=== PATIENT | female | born 1970 | race Two or more races ===

== ENCOUNTER 2020-03-12 00:38 | Inpatient (IN) | payer OTHER, SELFPAY ==
--- NOTE | 2020-03-12 | ECG_ITS ---
Test Reason : qtc prolongation Blood Pressure : / mmHG Vent. Rate : 084 BPM Atrial Rate : 084 BPM P-R Int : 124 ms QRS Dur : 080 ms QT Int : 360 ms P-R-T Axes : 064 025 030 degrees QTc Int : 425 ms Normal sinus rhythm Normal ECG No previous ECGs available Referred By: Deanna Awad Electronically Signed By:QUINN SALAZAR
--- NOTE | 2020-03-12 | CT_ITS ---
EXAMINATION: CT HEAD WITHOUT CONTRAST CLINICAL INFORMATION: Anterograde amnesia. COMPARISON: None. TECHNIQUE: Contiguous axial imaging was performed from the skull base to vertex without intravenous contrast. This CT examination was performed using dose optimization techniques as appropriate, variously including the following: * Automated exposure control * Adjustment of mA and/or kV according to patient size (this includes techniques or standardized protocols for targeted exams where dose is matched to indication/reason for exam; i.e. extremities or head) Use of iterative reconstruction technique DLP: 634 mGy-cm. FINDINGS: There is no evidence of acute intracranial hemorrhage or territorial infarction. No abnormal mass effect or midline shift is seen. Maddox to white matter differentiation is well preserved. No extra-axial fluid collections are identified. No hydrocephalus. No significant volume loss. There is no abnormal attenuation within the brain parenchyma. No acute osseous or soft tissue abnormality. Occipital decompression secondary to low position of the cerebellar tonsils. The mastoid air cells and visualized portions of the paranasal sinuses are well aerated. CT/CT head/brain wo con IMPRESSION: No acute intracranial pathology.
[2020-03-12 01:30] VITALS: BP 126/83; PULSE 95; RESP 16; TEMP 37.2; O2SAT 99
[2020-03-12 02:21] VITALS: BMI 21.8
[2020-03-12] MEDS: hydrOXYzine HCL 25 MG TABLET 50 MG PO ×2 (03:28→20:15)
[2020-03-12] MEDS: LORazepam 1 MG TABLET PO ×2 (03:28→16:03)
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
[2020-03-12 06:00] VITALS: BP 123/83; PULSE 83; RESP 16; TEMP 36.8; O2SAT 99
[2020-03-12 06:48] LABS: Glucose, Whole Blood 114 mg/dL (60-115)
[2020-03-12] MEDS: Folic Acid 1 MG TABLET PO (08:45)
[2020-03-12] MEDS: Escitalopram Oxalate 20 MG TABLET PO (08:45)
[2020-03-12] MEDS: Cholecalciferol (Vitamin D3) 25 MCG TABLET PO (08:45)
[2020-03-12] MEDS: Gabapentin 400 MG CAPSULE 800 MG PO ×3 (08:45→20:14)
[2020-03-12] MEDS: Acetaminophen 325 MG TABLET 650 MG PO (10:16)
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
[2020-03-12] MEDS: Magnesium Hydrox/Alum Hydrox 30 ML ORAL.SUSP PO (12:00)
[2020-03-12 17:07] LABS: Glucose, Whole Blood 113 mg/dL (60-115)
[2020-03-12 18:00] VITALS: BP 137/77; PULSE 97; TEMP 37.2
[2020-03-12] MEDS: Lithium Carbonate 300 MG CAPSULE PO (20:15)
[2020-03-12] MEDS: traZODone HCL 50 MG TABLET PO (20:15)
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
[2020-03-13] MEDS: LORazepam 1 MG TABLET PO ×2 (00:54→22:26)
[2020-03-13] MEDS: traZODone HCL 50 MG TABLET PO ×2 (00:54→22:26)
[2020-03-13 05:15] VITALS: BP 120/74; PULSE 98; RESP 18; TEMP 36.6; O2SAT 98
[2020-03-13 05:25] LABS: Glucose, Whole Blood 103 mg/dL (60-115)
[2020-03-13] MEDS: Acetaminophen 325 MG TABLET 650 MG PO (05:26)
[2020-03-13] MEDS: hydrOXYzine HCL 25 MG TABLET 50 MG PO (05:27)
[2020-03-13] MEDS: Gabapentin 400 MG CAPSULE 800 MG PO ×3 (09:03→20:35)
[2020-03-13] MEDS: Cholecalciferol (Vitamin D3) 25 MCG TABLET PO (09:03)
[2020-03-13] MEDS: Lithium Carbonate 300 MG CAPSULE PO ×2 (09:03→20:35)
[2020-03-13] MEDS: Escitalopram Oxalate 20 MG TABLET PO (09:03)
[2020-03-13] MEDS: Folic Acid 1 MG TABLET PO (09:03)
[2020-03-13 09:10] LABS: MANUAL DIFF FLAG NO
[2020-03-13 09:12] LABS: Basophils Absolute Auto 0.1 X10*3/uL (0.0-0.2); Basophils Percent Auto 1.3 % (0-2); Eosinophils Absolute Auto 0.5 X10*3/uL (0.0-0.4); Eosinophils Percent Auto 5.9 % (0-4); Hematocrit 36.1 % (37-47); Hemoglobin 11.2 g/dl (12.0-16.0); Imm Gran Abs Auto 0.04 X10*3/uL (0.00-0.03); Imm Gran Pct Auto 0.5 % (0.0-0.4); Lymphocytes Absolute Auto 2.2 X10*3/uL (1.2-4.9); Lymphocytes Percent Auto 24.6 % (20-40); Mean Corpuscular Hemoglobin 24.6 pg (27.0-33.0); Mean Corpuscular Volume 79.2 fL (80-98); Mean Platelet Volume 9.5 fL (9.4-12.3); Monocytes Absolute Auto 0.9 X10*3/uL (0.1-1.2); Monocytes Percent Auto 9.8 % (2-11); Neutrophils Absolute Auto 5.1 X10*3/uL (2.0-8.3); Neutrophils Percent Auto 57.9 % (45-73); Platelet Count 393 X10*3/uL (160-400); Red Blood Count 4.56 X10*6/uL (4.20-5.50); Red Cell Distribution Width 19.1 % (11.0-16.0); White Blood Count 8.7 X10*3/uL (4.8-10.8)
[2020-03-13 09:35] LABS: Alanine Aminotransferase 25 U/L (0-31); Albumin Level 4.1 g/dL (3.5-5.0); Alkaline Phosphatase 68 U/L (39-117); Anion Gap 14 (12-20); Aspartate Amino Transferase 35 U/L (5-31); Bilirubin Total 0.3 mg/dL (0.0-1.0); Blood Urea Nitrogen 22 mg/dL (9-16); Calcium 9.1 mg/dL (8.4-10.2); Carbon Dioxide 28 mmol/L (22-29); Chloride 101 mmol/L (96-108); Cholesterol 197 mg/dL; Creatinine Clr Calc Pharmacy 64.3; Estimated Glomerular Filt Rate > 60; Glucose Fasting 87 mg/dL (60-99); HDL Cholesterol 64 mg/dL; LDL Cholesterol Calculated 108 mg/dl; Potassium 4.8 mmol/l (3.3-5.1); Sodium 138 mmol/L (135-145); Total Protein 6.9 g/dL (6.5-8.0); Triglycerides 128 mg/dL
[2020-03-13 09:53] LABS: Estimated Average Glucose 111 mg/dL; Hemoglobin A1c % 5.5 %
[2020-03-13 09:55] LABS: Free T4 (Free Thyroxine) 0.64 ng/dL (0.71-1.85); Thyroid Stimulating Hormone 3.04 uIU/mL (0.32-4.0)
--- NOTE | 2020-03-13 15:07 | HO.PSYCHPN ---
Subjective Subjective Date of Service: 03/13/20 Reason For Visit: MAJOR DEPRESSIVE ORDER Subjective Notes: Conditional Voluntary Interim History: Pt continues to report difficulties with memory thinking that she has been in unit more than 4 days. However, she did recognized this freelance copywriter right away when she saw me and knew role. She continues to report depressed mood, anhedonia, but denies SI/HI. She reports fair sleep. Medication Compliance: Yes Side effects from medications: No Attending Groups: Yes Review of Systems Constitutional: Reports no additional constitutional complaints Cardiovascular: Reports no additional cardiovascular complaints Gastrointestinal: Reports no additional gastrointestinal complaints Musculoskeletal: Reports no additional musculoskeletal complaints Mental Status Exam Mental Status Exam Narrative: Appearance: thin, malnourish woman, somewhat disheveled, in NAD Behavior: calm, cooperative Psychomotor: no agitation or retardation noted Speech: clear, normal rate/rhythm/volume, spontaneous TP: linear, with gaps in memory TC: no signs of psychosis, hopeless/helpless, worried about her memory Mood: depressed Affect: slightly brigther than reported mood AH/VH: none Delusions: none Insight/judgment: poor x 2. Memory/cog: alert, oriented x 3, will complete MOCA Diagnostics Vital Signs (24Hr): Vital Signs - 24 hr 03/12/20 18:00 03/13/20 05:15 Temperature 98.9 F 98 F Pulse Rate 97 98 Respiratory Rate 18 Blood Pressure 137/77 120/74 Pulse Oximetry 98 Body Mass Index 21.8 Labs Results: 03/13/20 08:34 03/13/20 08:34 Labs: Laboratory Results - last 48 hr 03/12/20 03/12/20 03/13/20 06:30 16:57 05:21 WBC RBC Hgb Hct MCV MCH MCHC RDW Plt Count MPV Immature Gran % (Auto) Neut % (Auto) Lymph % (Auto) [place] % (Auto) Eos % (Auto) Baso % (Auto) Lymph # (Auto) [place] # (Auto) Eos # (Auto) Baso # (Auto) Abs Immat Gran (auto) Absolute Neuts (auto) Absolute Nucleated RBC Nucleated RBC % (auto) Sodium Potassium Chloride Carbon Dioxide Anion Gap BUN Creatinine Estim Creat Clear Calc Estimated GFR POC Glucose 114 113 103 Fasting Glucose Estimat Average Glucose Hemoglobin A1c % Calcium Total Bilirubin AST ALT Alkaline Phosphatase Total Protein Albumin Triglycerides Cholesterol LDL Cholesterol, Calc HDL Cholesterol TSH Free T4 03/13/20 03/13/20 03/13/20 08:34 08:34 08:34 WBC 8.7 RBC 4.56 Hgb 11.2 L Hct 36.1 L MCV 79.2 L MCH 24.6 L MCHC 31.0 RDW 19.1 H Plt Count 393 MPV 9.5 Immature Gran % (Auto) 0.5 H Neut % (Auto) 57.9 Lymph % (Auto) 24.6 [place] % (Auto) 9.8 Eos % (Auto) 5.9 H Baso % (Auto) 1.3 Lymph # (Auto) 2.2 [place] # (Auto) 0.9 Eos # (Auto) 0.5 H Baso # (Auto) 0.1 Abs Immat Gran (auto) 0.04 H Absolute Neuts (auto) 5.1 Absolute Nucleated RBC 0.000 Nucleated RBC % (auto) 0.0 Sodium 138 Potassium 4.8 Chloride 101 Carbon Dioxide 28 Anion Gap 14 BUN 22 H Creatinine 0.98 Estim Creat Clear Calc 64.3 Estimated GFR > 60 POC Glucose Fasting Glucose 87 Estimat Average Glucose 111 Hemoglobin A1c % 5.5 Calcium 9.1 Total Bilirubin 0.3 AST 35 H ALT 25 Alkaline Phosphatase 68 Total Protein 6.9 Albumin 4.1 Triglycerides 128 Cholesterol 197 LDL Cholesterol, Calc 108 HDL Cholesterol 64 TSH 3.04 Free T4 0.64 L Imaging Radiology Impressions: ITS Impressions Head CT 03/12/20 00:00 IMPRESSION: No acute intracranial pathology. Medications Medications Current Medications Generic Name Dose Route Start Last Admin Trade Name Freq PRN Reason Stop Dose Admin Acetaminophen 650 mg 03/12/20 02:49 03/13/20 05:26 Acetaminophen 325 Mg Tablet PO 650 mg Q6H PRN Administration Headache/Pain Mild Scale (1-3) Al Hydroxide/Mg Hydroxide 30 ml 03/12/20 02:49 03/12/20 12:00 Magnesium Hydrox/Alum Hydrox 30 Ml Oral.Susp PO 30 ml Q6H PRN Administration Heartburn/Nausea Escitalopram Oxalate 20 mg 03/12/20 09:00 03/13/20 09:03 Escitalopram Oxalate 20 Mg Tablet PO 20 mg DAILY [facility] Administration Folic Acid 1 mg 03/12/20 09:00 03/13/20 09:03 Folic Acid 1 Mg Tablet PO 1 mg DAILY [facility] Administration Gabapentin 800 mg 03/12/20 09:00 03/13/20 14:11 Gabapentin 400 Mg Capsule PO 800 mg TID [facility] Administration Hydroxyzine HCl 50 mg 03/12/20 02:49 03/13/20 05:27 Hydroxyzine Hcl 25 Mg Tablet PO 50 mg Q6H PRN Administration Anxiety [place] Carbonate 300 mg 03/12/20 21:00 03/13/20 09:03 [place] Carbonate 300 Mg Capsule PO 300 mg BID SP[facility]ER Administration Lorazepam 1 mg 03/12/20 02:59 03/13/20 00:54 Lorazepam 1 Mg Tablet PO 1 mg Q6H PRN Administration Anxiety Magnesium Hydroxide 30 ml 03/12/20 02:49 Milk Of Magnesia 30 Ml Oral.Susp PO DAILY PRN Constipation Nicotine Polacrilex 2 mg 03/12/20 05:51 03/12/20 16:04 Nicotine Polacrilex 2 Mg Lozenge BUCCAL 2 mg Q2H PRN Administration Nicotine Cravings Trazodone HCl 50 mg 03/12/20 02:49 03/13/20 00:54 Trazodone Hcl 50 Mg Tablet PO 50 mg BEDTIME PRN Administration Insomnia Vitamin D 25 mcg 03/12/20 09:00 03/13/20 09:03 Cholecalciferol (Vitamin D3) 25 Mcg Tablet PO 25 mcg DAILY [facility] Administration Allergies Allergies Allergy/AdvReac Type Severity Reaction Status Date / Time isabella Allergy Anaphylaxis Verified 03/12/20 02:18 paprika Allergy Anaphylaxis Verified 03/12/20 02:18 codeine AdvReac Seizure Verified 03/12/20 02:18 lamotrigine [From Lamictal] AdvReac Seizure Verified 03/12/20 02:18 Assessment & Plan Assessment & Plan (1) MDD (major depressive disorder), recurrent episode, moderate: Status: Acute Code(s): F33.1 - Major depressive disorder, recurrent, moderate Assessment and Plan: 1. continue lexapro 2. increase lithium to 300mg po BID 3. continue gabapetin- this is for seizures. 4. Continue remeron for sleep (2) Alcohol dependence: Status: Acute Code(s): F10.20 - Alcohol dependence, uncomplicated Greater than 50% of the session was spent on counseling and/or coordination of care
[2020-03-13 16:00] VITALS: BP 134/80; PULSE 93; TEMP 36.8
[2020-03-13 17:05] LABS: Glucose, Whole Blood 86 mg/dL (60-115)
[2020-03-13 20:31] VITALS: BP 125/83; PULSE 93
[2020-03-13 20:35] VITALS: BP 125/83; PULSE 93
[2020-03-13] MEDS: cloNIDine HCL 0.1 MG TABLET PO (20:35)
[2020-03-14] MEDS: hydrOXYzine HCL 25 MG TABLET 50 MG PO ×2 (01:53→18:34)
[2020-03-14] MEDS: traZODone HCL 50 MG TABLET PO ×2 (01:53→21:56)
[2020-03-14 04:50] VITALS: BP 117/65; PULSE 93; RESP 18; TEMP 36.9; O2SAT 98
[2020-03-14 04:55] VITALS: BP 117/65; PULSE 93
[2020-03-14] MEDS: cloNIDine HCL 0.1 MG TABLET PO (04:55)
[2020-03-14] MEDS: Acetaminophen 325 MG TABLET 650 MG PO (04:55)
[2020-03-14 05:05] LABS: Glucose, Whole Blood 101 mg/dL (60-115)
[2020-03-14] MEDS: Folic Acid 1 MG TABLET PO (08:53)
[2020-03-14] MEDS: Gabapentin 400 MG CAPSULE 800 MG PO ×3 (08:53→21:56)
[2020-03-14] MEDS: Cholecalciferol (Vitamin D3) 25 MCG TABLET PO (08:53)
[2020-03-14] MEDS: Lithium Carbonate 300 MG CAPSULE PO ×2 (08:54→21:56)
[2020-03-14] MEDS: Escitalopram Oxalate 20 MG TABLET PO (08:54)
[2020-03-14] MEDS: LORazepam 1 MG TABLET PO ×2 (14:04→21:56)
--- NOTE | 2020-03-14 14:05 | HO.PSYCHPN ---
Subjective Subjective Date of Service: 03/14/20 Reason For Visit: MAJOR DEPRESSIVE ORDER Interim History: Pt reports improvement in mood in that she feels less depressed, less anxious. She states she worries about missing dose of vivitrol that is due today. Pt reports improved sleep, but woke up few times. She denies SI/HI. No behavioral concerns. She is visible in the unit, social with select peers. Review of Systems Constitutional: Reports no additional constitutional complaints Cardiovascular: Reports no additional cardiovascular complaints Gastrointestinal: Reports no additional gastrointestinal complaints Musculoskeletal: Reports no additional musculoskeletal complaints Mental Status Exam Mental Status Exam Narrative: Appearance: thin, malnourish woman, somewhat disheveled, in NAD Behavior: calm, cooperative Psychomotor: no agitation or retardation noted Speech: clear, normal rate/rhythm/volume, spontaneous TP: linear, with gaps in memory TC: no signs of psychosis, hopeless/helpless, worried about her memory Mood: depressed Affect: slightly brigther than reported mood AH/VH: none Delusions: none Insight/judgment: poor x 2. Memory/cog: alert, oriented x 3, will complete MOCA Diagnostics Vital Signs (24Hr): Vital Signs - 24 hr 03/13/20 16:00 03/13/20 20:31 03/13/20 20:35 Temperature 98.3 F Pulse Rate 93 93 93 Respiratory Rate Blood Pressure 134/80 125/83 125/83 Pulse Oximetry 03/14/20 04:50 03/14/20 04:55 Temperature 98.4 F Pulse Rate 93 93 Respiratory Rate 18 Blood Pressure 117/65 117/65 Pulse Oximetry 98 Body Mass Index 21.8 Labs Results: 03/13/20 08:34 03/13/20 08:34 Labs: Laboratory Results - last 48 hr 03/12/20 03/13/20 03/13/20 16:57 05:21 08:34 WBC 8.7 RBC 4.56 Hgb 11.2 L Hct 36.1 L MCV 79.2 L MCH 24.6 L MCHC 31.0 RDW 19.1 H Plt Count 393 MPV 9.5 Immature Gran % (Auto) 0.5 H Neut % (Auto) 57.9 Lymph % (Auto) 24.6 [place] % (Auto) 9.8 Eos % (Auto) 5.9 H Baso % (Auto) 1.3 Lymph # (Auto) 2.2 [place] # (Auto) 0.9 Eos # (Auto) 0.5 H Baso # (Auto) 0.1 Abs Immat Gran (auto) 0.04 H Absolute Neuts (auto) 5.1 Absolute Nucleated RBC 0.000 Nucleated RBC % (auto) 0.0 Sodium Potassium Chloride Carbon Dioxide Anion Gap BUN Creatinine Estim Creat Clear Calc Estimated GFR POC Glucose 113 103 Fasting Glucose Estimat Average Glucose Hemoglobin A1c % Calcium Total Bilirubin AST ALT Alkaline Phosphatase Total Protein Albumin Triglycerides Cholesterol LDL Cholesterol, Calc HDL Cholesterol TSH Free T4 03/13/20 03/13/20 03/13/20 08:34 08:34 16:53 WBC RBC Hgb Hct MCV MCH MCHC RDW Plt Count MPV Immature Gran % (Auto) Neut % (Auto) Lymph % (Auto) [place] % (Auto) Eos % (Auto) Baso % (Auto) Lymph # (Auto) [place] # (Auto) Eos # (Auto) Baso # (Auto) Abs Immat Gran (auto) Absolute Neuts (auto) Absolute Nucleated RBC Nucleated RBC % (auto) Sodium 138 Potassium 4.8 Chloride 101 Carbon Dioxide 28 Anion Gap 14 BUN 22 H Creatinine 0.98 Estim Creat Clear Calc 64.3 Estimated GFR > 60 POC Glucose 86 Fasting Glucose 87 Estimat Average Glucose 111 Hemoglobin A1c % 5.5 Calcium 9.1 Total Bilirubin 0.3 AST 35 H ALT 25 Alkaline Phosphatase 68 Total Protein 6.9 Albumin 4.1 Triglycerides 128 Cholesterol 197 LDL Cholesterol, Calc 108 HDL Cholesterol 64 TSH 3.04 Free T4 0.64 L 03/14/20 05:01 WBC RBC Hgb Hct MCV MCH MCHC RDW Plt Count MPV Immature Gran % (Auto) Neut % (Auto) Lymph % (Auto) [place] % (Auto) Eos % (Auto) Baso % (Auto) Lymph # (Auto) [place] # (Auto) Eos # (Auto) Baso # (Auto) Abs Immat Gran (auto) Absolute Neuts (auto) Absolute Nucleated RBC Nucleated RBC % (auto) Sodium Potassium Chloride Carbon Dioxide Anion Gap BUN Creatinine Estim Creat Clear Calc Estimated GFR POC Glucose 101 Fasting Glucose Estimat Average Glucose Hemoglobin A1c % Calcium Total Bilirubin AST ALT Alkaline Phosphatase Total Protein Albumin Triglycerides Cholesterol LDL Cholesterol, Calc HDL Cholesterol TSH Free T4 Imaging Radiology Impressions: ITS Impressions Head CT 03/12/20 00:00 IMPRESSION: No acute intracranial pathology. Medications Medications Current Medications Generic Name Dose Route Start Last Admin Trade Name Freq PRN Reason Stop Dose Admin Acetaminophen 650 mg 03/12/20 02:49 03/14/20 04:55 Acetaminophen 325 Mg Tablet PO 650 mg Q6H PRN Administration Headache/Pain Mild Scale (1-3) Al Hydroxide/Mg Hydroxide 30 ml 03/12/20 02:49 03/12/20 12:00 Magnesium Hydrox/Alum Hydrox 30 Ml Oral.Susp PO 30 ml Q6H PRN Administration Heartburn/Nausea Clonidine HCl 0.1 mg 03/13/20 20:23 03/14/20 04:55 Clonidine Hcl 0.1 Mg Tablet PO 0.1 mg TID PRN Administration anxiety Protocol Escitalopram Oxalate 20 mg 03/12/20 09:00 03/14/20 08:54 Escitalopram Oxalate 20 Mg Tablet PO 20 mg DAILY [facility] Administration Folic Acid 1 mg 03/12/20 09:00 03/14/20 08:53 Folic Acid 1 Mg Tablet PO 1 mg DAILY [facility] Administration Gabapentin 800 mg 03/12/20 09:00 03/14/20 08:53 Gabapentin 400 Mg Capsule PO 800 mg TID SPENSER Administration Hydroxyzine HCl 50 mg 03/12/20 02:49 03/14/20 01:53 Hydroxyzine Hcl 25 Mg Tablet PO 50 mg Q6H PRN Administration Anxiety [place] Carbonate 300 mg 03/12/20 21:00 03/14/20 08:54 [place] Carbonate 300 Mg Capsule PO 300 mg BID SPENSER Administration Lorazepam 1 mg 03/12/20 02:59 03/13/20 22:26 Lorazepam 1 Mg Tablet PO 1 mg Q6H PRN Administration Anxiety Magnesium Hydroxide 30 ml 03/12/20 02:49 Milk Of Magnesia 30 Ml Oral.Susp PO DAILY PRN Constipation Nicotine Polacrilex 2 mg 03/12/20 05:51 03/12/20 16:04 Nicotine Polacrilex 2 Mg Lozenge BUCCAL 2 mg Q2H PRN Administration Nicotine Cravings Trazodone HCl 50 mg 03/12/20 02:49 03/14/20 01:53 Trazodone Hcl 50 Mg Tablet PO 50 mg BEDTIME PRN Administration Insomnia Vitamin D 25 mcg 03/12/20 09:00 03/14/20 08:53 Cholecalciferol (Vitamin D3) 25 Mcg Tablet PO 25 mcg DAILY SPENSER Administration Allergies Allergies Allergy/AdvReac Type Severity Reaction Status Date / Time isabella Allergy Anaphylaxis Verified 03/12/20 02:18 paprika Allergy Anaphylaxis Verified 03/12/20 02:18 codeine AdvReac Seizure Verified 03/12/20 02:18 lamotrigine [From Lamictal] AdvReac Seizure Verified 03/12/20 02:18 Assessment & Plan Assessment & Plan (1) MDD (major depressive disorder), recurrent episode, moderate: Status: Acute Code(s): F33.1 - Major depressive disorder, recurrent, moderate Assessment and Plan: 1. continue lexapro 2. increase lithium to 300mg po BID 3. continue gabapetin- this is for seizures. 4. Continue remeron for sleep (2) Alcohol dependence: Status: Acute Code(s): F10.20 - Alcohol dependence, uncomplicated Greater than 50% of the session was spent on counseling and/or coordination of care
[2020-03-14 18:25] VITALS: BP 108/66; PULSE 63; TEMP 36.9
[2020-03-15 02:07] VITALS: BP 109/65; PULSE 73
[2020-03-15] MEDS: cloNIDine HCL 0.1 MG TABLET PO ×2 (02:07→09:20)
[2020-03-15] MEDS: hydrOXYzine HCL 25 MG TABLET 50 MG PO ×3 (02:08→21:24)
[2020-03-15] MEDS: Acetaminophen 325 MG TABLET 650 MG PO ×2 (02:08→14:13)
[2020-03-15] MEDS: traZODone HCL 50 MG TABLET PO ×3 (02:16→23:27)
[2020-03-15 05:21] LABS: Glucose, Whole Blood 93 mg/dL (60-115)
[2020-03-15 05:22] LABS: Folate 13.4 ng/mL (> or = 4.0); Vitamin B12 297 pg/mL (200-900)
[2020-03-15] MEDS: LORazepam 1 MG TABLET PO (05:33)
[2020-03-15 05:45] VITALS: BP 100/59; PULSE 75; RESP 16; TEMP 36.7; O2SAT 99
--- NOTE | 2020-03-15 05:56 | PC.NURSE ---
Patient was up by 0200 requesting PRNs and reports that she has SI due the fact that she could not get her Vivitrol shot. Patient reports that it has been more than 28 days since she last received tx It has been a rough weekends. I have been telling them that I need the shot . Patient reports to staff that she has thoughts and plan to harm to herself but refused to tell RNs what it is. Patient cannot contract for safety. Patient remained on 5 min checks with locked bathroom and staff has been closely monitor patient to make sure patient remain safe on the unit.
[2020-03-15 08:22] LABS: Lithium 0.45 mmol/L (0.60-1.20)
[2020-03-15 08:30] LABS: Iron 30 mcg/dL (30-160); Percent Iron Saturation 6 % (15-50); Total Iron Binding Capacity 474 mcg/dL (228-428); Unsaturated Iron Binding 444 ug/dL
[2020-03-15] MEDS: Gabapentin 400 MG CAPSULE 800 MG PO ×3 (08:43→21:25)
[2020-03-15] MEDS: Cholecalciferol (Vitamin D3) 25 MCG TABLET PO (08:43)
[2020-03-15] MEDS: Folic Acid 1 MG TABLET PO (08:44)
[2020-03-15] MEDS: Lithium Carbonate 300 MG CAPSULE PO ×2 (08:44→21:25)
[2020-03-15] MEDS: Escitalopram Oxalate 20 MG TABLET PO (08:45)
[2020-03-15 09:20] VITALS: BP 102/64; PULSE 87
--- NOTE | 2020-03-15 14:26 | PC.NURSE ---
Pt participated in [facility] screen version 8.1 on this date, scored 20/30, indicating cognition is below normal limits. TRIPE FINISHER and staff aware of results.
--- NOTE | 2020-03-15 14:36 | HO.PSYCHPN ---
Subjective Subjective Date of Service: 03/15/20 Reason For Visit: MAJOR DEPRESSIVE ORDER Interim History: Pt very upset about not being able to get vivitrol injection today. Pt was explained that we have to order it and will come to unit in 3-4 days. Per pharmacy she had last injection 02/16. Pt then reported suicidal ideation if she does not get injection today. She reports nausea with oral pill. She does report some cravings to use alcohol. However, pt prior to meeting was eating lunch, seen smiling and socializing with peers without significant distress. Review of Systems Constitutional: Reports no additional constitutional complaints Cardiovascular: Reports no additional cardiovascular complaints Gastrointestinal: Reports no additional gastrointestinal complaints Musculoskeletal: Reports no additional musculoskeletal complaints Mental Status Exam Mental Status Exam Narrative: Appearance: thin, malnourish woman, somewhat disheveled, in NAD Behavior: calm, cooperative Psychomotor: no agitation or retardation noted Speech: clear, normal rate/rhythm/volume, spontaneous TP: linear, with gaps in memory TC: no signs of psychosis, hopeless/helpless, worried about her memory Mood: depressed Affect: slightly brigther than reported mood AH/VH: none Delusions: none Insight/judgment: poor x 2. Memory/cog: alert, oriented x 3, will complete MOCA Diagnostics Vital Signs (24Hr): Vital Signs - 24 hr 03/14/20 18:25 03/15/20 02:07 03/15/20 05:45 Temperature 98.4 F 98.1 F Pulse Rate 63 73 75 Respiratory Rate 16 Blood Pressure 108/66 109/65 100/59 L Pulse Oximetry 99 03/15/20 09:20 Temperature Pulse Rate 87 Respiratory Rate Blood Pressure 102/64 Pulse Oximetry Body Mass Index 21.8 Labs Results: 03/13/20 08:34 03/13/20 08:34 Labs: Laboratory Results - last 48 hr 03/13/20 03/13/20 03/14/20 08:34 16:53 05:01 POC Glucose 86 101 Iron TIBC % Saturation Unsat Iron Binding Vitamin B12 297 Folate 13.4 [place] 03/15/20 03/15/20 03/15/20 05:17 07:45 07:45 POC Glucose 93 Iron 30 TIBC 474 H % Saturation 6 L Unsat Iron Binding 444 Vitamin B12 Folate [place] 0.45 L Imaging Radiology Impressions: ITS Impressions Head CT 03/12/20 00:00 IMPRESSION: No acute intracranial pathology. Medications Medications Current Medications Generic Name Dose Route Start Last Admin Trade Name Freq PRN Reason Stop Dose Admin Acetaminophen 650 mg 03/12/20 02:49 03/15/20 14:13 Acetaminophen 325 Mg Tablet PO 650 mg Q6H PRN Administration Headache/Pain Mild Scale (1-3) Al Hydroxide/Mg Hydroxide 30 ml 03/12/20 02:49 03/12/20 12:00 Magnesium Hydrox/Alum Hydrox 30 Ml Oral.Susp PO 30 ml Q6H PRN Administration Heartburn/Nausea Clonidine HCl 0.1 mg 03/13/20 20:23 03/15/20 09:20 Clonidine Hcl 0.1 Mg Tablet PO 0.1 mg TID PRN Administration anxiety Protocol Escitalopram Oxalate 20 mg 03/12/20 09:00 03/15/20 08:45 Escitalopram Oxalate 20 Mg Tablet PO 20 mg DAILY SPENSER Administration Folic Acid 1 mg 03/12/20 09:00 03/15/20 08:44 Folic Acid 1 Mg Tablet PO 1 mg DAILY SPENSER Administration Gabapentin 800 mg 03/12/20 09:00 03/15/20 14:13 Gabapentin 400 Mg Capsule PO 800 mg TID SPENSER Administration Hydroxyzine HCl 50 mg 03/12/20 02:49 03/15/20 09:23 Hydroxyzine Hcl 25 Mg Tablet PO 50 mg Q6H PRN Administration Anxiety [place] Carbonate 300 mg 03/12/20 21:00 03/15/20 08:44 [place] Carbonate 300 Mg Capsule PO 300 mg BID SPENSER Administration Lorazepam 1 mg 03/12/20 02:59 03/15/20 05:33 Lorazepam 1 Mg Tablet PO 1 mg Q6H PRN Administration Anxiety Magnesium Hydroxide 30 ml 03/12/20 02:49 Milk Of Magnesia 30 Ml Oral.Susp PO DAILY PRN Constipation Nicotine Polacrilex 2 mg 03/12/20 05:51 03/12/20 16:04 Nicotine Polacrilex 2 Mg Lozenge BUCCAL 2 mg Q2H PRN Administration Nicotine Cravings Trazodone HCl 50 mg 03/12/20 02:49 03/15/20 02:16 Trazodone Hcl 50 Mg Tablet PO 50 mg BEDTIME PRN Administration Insomnia Vitamin D 25 mcg 03/12/20 09:00 03/15/20 08:43 Cholecalciferol (Vitamin D3) 25 Mcg Tablet PO 25 mcg DAILY SPENSER Administration Allergies Allergies Allergy/AdvReac Type Severity Reaction Status Date / Time isabella Allergy Anaphylaxis Verified 03/12/20 02:18 paprika Allergy Anaphylaxis Verified 03/12/20 02:18 codeine AdvReac Seizure Verified 03/12/20 02:18 lamotrigine [From Lamictal] AdvReac Seizure Verified 03/12/20 02:18 Assessment & Plan Assessment & Plan (1) MDD (major depressive disorder), recurrent episode, moderate: Status: Acute Code(s): F33.1 - Major depressive disorder, recurrent, moderate Assessment and Plan: 1. continue lexapro 2. increase lithium to 300mg po BID 3. continue gabapetin- this is for seizures. 4. Continue remeron for sleep (2) Alcohol dependence: Status: Acute Code(s): F10.20 - Alcohol dependence, uncomplicated Greater than 50% of the session was spent on counseling and/or coordination of care
[2020-03-15 18:55] VITALS: BP 95/54; PULSE 79; TEMP 36.9
[2020-03-16 01:15] VITALS: BP 115/64; PULSE 82
[2020-03-16] MEDS: cloNIDine HCL 0.1 MG TABLET PO ×2 (01:15→08:55)
[2020-03-16] MEDS: traZODone HCL 50 MG TABLET PO (01:15)
[2020-03-16] MEDS: Acetaminophen 325 MG TABLET 650 MG PO ×3 (01:15→16:06)
[2020-03-16] MEDS: LORazepam 1 MG TABLET PO ×2 (01:16→08:54)
[2020-03-16] MEDS: hydrOXYzine HCL 25 MG TABLET 50 MG PO ×2 (04:36→20:28)
[2020-03-16 06:00] VITALS: BP 98/55; PULSE 86; RESP 16; TEMP 36.6; O2SAT 99
[2020-03-16 06:19] LABS: Glucose, Whole Blood 116 mg/dL (60-115)
[2020-03-16] MEDS: Gabapentin 400 MG CAPSULE 800 MG PO ×3 (08:52→20:28)
[2020-03-16] MEDS: Cholecalciferol (Vitamin D3) 25 MCG TABLET PO (08:53)
[2020-03-16] MEDS: Escitalopram Oxalate 20 MG TABLET PO (08:53)
[2020-03-16] MEDS: Folic Acid 1 MG TABLET PO (08:53)
[2020-03-16] MEDS: Lithium Carbonate 300 MG CAPSULE PO ×2 (08:54→20:28)
[2020-03-16 08:55] VITALS: BP 103/69; PULSE 80
[2020-03-16 09:09] VITALS: BP 103/69; PULSE 80
--- NOTE | 2020-03-16 16:37 | HO.PSYCHPN ---
Subjective Subjective Date of Service: 03/18/20 Reason For Visit: MAJOR DEPRESSIVE ORDER Interim History: Pt pleasant on approach today. She reports feeling less anxious and less depressed. She denied SI/HI. She reports wanting to return to the home with roommate Forrest. She declined referral to [facility]. She denies memory problems today and states she does remember she has to move out of his apartment by April. Review of Systems Constitutional: Reports no additional constitutional complaints Cardiovascular: Reports no additional cardiovascular complaints Gastrointestinal: Reports no additional gastrointestinal complaints Musculoskeletal: Reports no additional musculoskeletal complaints Mental Status Exam Mental Status Exam Narrative: Appearance: thin, malnourish woman, somewhat disheveled, in NAD Behavior: calm, cooperative Psychomotor: no agitation or retardation noted Speech: clear, normal rate/rhythm/volume, spontaneous TP: linear, with gaps in memory TC: no signs of psychosis, hopeless/helpless, worried about her memory Mood: depressed Affect: slightly brigther than reported mood AH/VH: none Delusions: none Insight/judgment: poor x 2. Memory/cog: alert, oriented x 3, will complete MOCA Diagnostics Vital Signs (24Hr): Vital Signs - 24 hr 03/15/20 18:55 03/16/20 01:15 03/16/20 06:00 Temperature 98.5 F 97.9 F Pulse Rate 79 82 86 Respiratory Rate 16 Blood Pressure 95/54 L 115/64 98/55 L Pulse Oximetry 99 03/16/20 08:55 03/16/20 09:09 Temperature Pulse Rate 80 80 Respiratory Rate Blood Pressure 103/69 103/69 Pulse Oximetry Body Mass Index 21.8 Labs Results: 03/13/20 08:34 03/13/20 08:34 Labs: Laboratory Results - last 48 hr 03/13/20 03/15/20 03/15/20 08:34 05:17 07:45 POC Glucose 93 Iron 30 TIBC 474 H % Saturation 6 L Unsat Iron Binding 444 Vitamin B12 297 Folate 13.4 [place] 03/15/20 03/16/20 07:45 05:59 POC Glucose 116 H Iron TIBC % Saturation Unsat Iron Binding Vitamin B12 Folate [place] 0.45 L Imaging Radiology Impressions: ITS Impressions Head CT 03/12/20 00:00 IMPRESSION: No acute intracranial pathology. Medications Medications Current Medications Generic Name Dose Route Start Last Admin Trade Name Freq PRN Reason Stop Dose Admin Acetaminophen 650 mg 03/12/20 02:49 03/16/20 16:06 Acetaminophen 325 Mg Tablet PO 650 mg Q6H PRN Administration Headache/Pain Mild Scale (1-3) Al Hydroxide/Mg Hydroxide 30 ml 03/12/20 02:49 03/12/20 12:00 Magnesium Hydrox/Alum Hydrox 30 Ml Oral.Susp PO 30 ml Q6H PRN Administration Heartburn/Nausea Clonidine HCl 0.1 mg 03/13/20 20:23 03/16/20 08:55 Clonidine Hcl 0.1 Mg Tablet PO 0.1 mg TID PRN Administration anxiety Protocol Escitalopram Oxalate 20 mg 03/12/20 09:00 03/16/20 08:53 Escitalopram Oxalate 20 Mg Tablet PO 20 mg DAILY SPENSER Administration Folic Acid 1 mg 03/12/20 09:00 03/16/20 08:53 Folic Acid 1 Mg Tablet PO 1 mg DAILY SPENSER Administration Gabapentin 800 mg 03/12/20 09:00 03/16/20 14:31 Gabapentin 400 Mg Capsule PO 800 mg TID SPENSER Administration Hydroxyzine HCl 50 mg 03/12/20 02:49 03/16/20 04:36 Hydroxyzine Hcl 25 Mg Tablet PO 50 mg Q6H PRN Administration Anxiety [place] Carbonate 300 mg 03/12/20 21:00 03/16/20 08:54 [place] Carbonate 300 Mg Capsule PO 300 mg BID SPENSER Administration Magnesium Hydroxide 30 ml 03/12/20 02:49 Milk Of Magnesia 30 Ml Oral.Susp PO DAILY PRN Constipation Nicotine Polacrilex 2 mg 03/12/20 05:51 03/12/20 16:04 Nicotine Polacrilex 2 Mg Lozenge BUCCAL 2 mg Q2H PRN Administration Nicotine Cravings Trazodone HCl 50 mg 03/12/20 02:49 03/16/20 01:15 Trazodone Hcl 50 Mg Tablet PO 50 mg BEDTIME PRN Administration Insomnia Vitamin D 25 mcg 03/12/20 09:00 03/16/20 08:53 Cholecalciferol (Vitamin D3) 25 Mcg Tablet PO 25 mcg DAILY SPENSER Administration Allergies Allergies Allergy/AdvReac Type Severity Reaction Status Date / Time isabella Allergy Anaphylaxis Verified 03/12/20 02:18 paprika Allergy Anaphylaxis Verified 03/12/20 02:18 codeine AdvReac Seizure Verified 01/22/21 02:18 lamotrigine [From Lamictal] AdvReac Seizure Verified 03/12/20 02:18 Assessment & Plan Assessment & Plan (1) MDD (major depressive disorder), recurrent episode, moderate: Status: Acute Code(s): F33.1 - Major depressive disorder, recurrent, moderate Assessment and Plan: 1. continue lexapro 2. increase lithium to 300mg po BID 3. continue gabapetin- this is for seizures. 4. Continue remeron for sleep (2) Alcohol dependence: Status: Acute Code(s): F10.20 - Alcohol dependence, uncomplicated Greater than 50% of the session was spent on counseling and/or coordination of care
[2020-03-16 18:00] VITALS: BP 106/53; PULSE 85; TEMP 36.5
[2020-03-16 22:18] LABS: Glucose, Whole Blood 68 mg/dL (60-115)
[2020-03-17 01:43] VITALS: BP 111/68; PULSE 79
[2020-03-17] MEDS: cloNIDine HCL 0.1 MG TABLET PO ×2 (01:43→20:26)
[2020-03-17] MEDS: Acetaminophen 325 MG TABLET 650 MG PO ×2 (01:43→20:25)
[2020-03-17] MEDS: traZODone HCL 50 MG TABLET PO ×2 (01:44→20:25)
[2020-03-17] MEDS: hydrOXYzine HCL 25 MG TABLET 50 MG PO ×2 (04:09→20:27)
[2020-03-17 06:20] VITALS: BP 109/60; PULSE 71; RESP 16; TEMP 36.8; O2SAT 100
[2020-03-17 06:21] LABS: Glucose, Whole Blood 106 mg/dL (60-115)
[2020-03-17] MEDS: Gabapentin 400 MG CAPSULE 800 MG PO ×3 (08:58→20:25)
[2020-03-17] MEDS: Lithium Carbonate 300 MG CAPSULE PO ×2 (08:59→20:26)
[2020-03-17] MEDS: Cholecalciferol (Vitamin D3) 25 MCG TABLET PO (08:59)
[2020-03-17] MEDS: Folic Acid 1 MG TABLET PO (08:59)
[2020-03-17] MEDS: Escitalopram Oxalate 20 MG TABLET PO (08:59)
[2020-03-17] MEDS: NaPROXEN 500 MG TABLET PO (14:12)
--- NOTE | 2020-03-17 15:58 | PC.NURSE ---
VISIBLE IN KITCHEN AT 1400 WHEN THIS ASSISTANT SERVICE MANAGER COMPLETED HR OF SAFETY CHECKS. APPROACHED THIS ASSISTANT SERVICE MANAGER AT MED ROOM DOOR AT 1410 AND REQUESTED A BANDAID TO CUSHION HER LEFT KNEE. STATED SHE HAD JUST FALLEN IN HER BATHROOM WHEN ASKED ABOUT THIS STATED SHE HAD A SEIZURE IN THE BATHROOM AFTER UTILIZING THE TOILET. STATED SHE BECAME RESPONSIVE AFTER SEIZURE AND WAS ON HER LEFT KNEE WITH HANDS ON THE TOILET. NO INJURY NOTED BY THIS ASSISTANT SERVICE MANAGER; NO REDNESS, INFLAMMATION, OPEN AREA, ECCYMOSIS NOTED. RATED LEG PAIN #9 ON SCALE 1-10(10 WORSE). NAPROXEN 500 MG PO GIVEN AT 1412 WITH REPORT OF NO EFFECT WHEN REASSESSED. VS 97.2-80-16 118/69 O2 SAT 100% RM AIR. LAUREL BURGOS APRN, NOTIFIED OF PT'S REPORT. [place] RE[place]IV[place] [facility] [facility] REVIEWED. PT ALERT AND ORIENTED X4 DURING INTERACTION WITH THIS ASSISTANT SERVICE MANAGER. STANCE AND GAIT STABLE. GRASPS STRONG, SPEECH CLEAR. STAFF TO CONTINUE TO MONITOR.
[2020-03-17 17:30] LABS: Glucose, Whole Blood 82 mg/dL (60-115)
[2020-03-17 19:35] VITALS: BP 147/65; PULSE 82; TEMP 36.6
[2020-03-17 20:26] VITALS: BP 147/65; PULSE 82
--- NOTE | 2020-03-17 23:51 | PC.NURSE ---
Pt informed this television writer that she would like to restart Depakote. Pt said was on this med in the past and was taking in conjunction with Gabapentin to control seizures. Pt c/o of an unwitnessed bloody nose reporting it to staff at 1825. Pt said this is an ongoing problem that she has used Flonase to control. Pt expressed she would like to be on both meds.
[2020-03-18 00:09] VITALS: BP 100/65; PULSE 65
[2020-03-18] MEDS: cloNIDine HCL 0.1 MG TABLET PO ×2 (00:09→13:46)
[2020-03-18] MEDS: NaPROXEN 500 MG TABLET PO (05:29)
[2020-03-18 05:30] VITALS: BP 94/58; PULSE 68; RESP 16; TEMP 36.6; O2SAT 97
[2020-03-18 05:32] LABS: Glucose, Whole Blood 93 mg/dL (60-115)
[2020-03-18] MEDS: Cholecalciferol (Vitamin D3) 25 MCG TABLET PO (08:46)
[2020-03-18] MEDS: Escitalopram Oxalate 20 MG TABLET PO (08:46)
[2020-03-18] MEDS: Lithium Carbonate 300 MG CAPSULE PO (08:47)
[2020-03-18] MEDS: Folic Acid 1 MG TABLET PO (08:47)
[2020-03-18] MEDS: Gabapentin 400 MG CAPSULE 800 MG PO ×2 (08:47→13:45)
--- NOTE | 2020-03-18 10:02 | P.PNPSI_ITS ---
Subjective Subjective Date of Service: 03/17/20 Reason For Visit: MAJOR DEPRESSIVE ORDER Subjective Notes: Conditional Voluntary Interim History: Pt reports not remembering that we had discussed discharge. She reports not remembering her current housing situation. She also asks if she can have a WC due to being a fall risk, but she ambulates without difficulties. She denies SI/HI. She later told clinician that she did not remember conversation about discharge earlier with me but did ask about referrals to [facility] which we had talked about to help with housing the day before. She reported having a seizure- unwitnessed- no changes in vital signs, no loss of bladder/bowel control, no LOC- unlikely this to be seizure. Pt reminded that she has to follow up with justin rology for another eeg with video as the one completed 07/2019 did not show any signs of epileptic activity.. Review of Systems Constitutional: Reports no additional constitutional complaints Cardiovascular: Reports no additional cardiovascular complaints Gastrointestinal: Reports no additional gastrointestinal complaints Musculoskeletal: Reports no additional musculoskeletal complaints Mental Status Exam Mental Status Exam Narrative: Appearance: thin, malnourish woman, somewhat disheveled, in NAD Behavior: calm, cooperative Psychomotor: no agitation or retardation noted Speech: clear, normal rate/rhythm/volume, spontaneous TP: linear, with gaps in memory TC: no signs of psychosis, hopeless/helpless, worried about her memory Mood: depressed Affect: slightly brigther than reported mood AH/VH: none Delusions: none Insight/judgment: poor x 2. Memory/cog: alert, oriented x 3, will complete MOCA Diagnostics Vital Signs (24Hr): Vital Signs - 24 hr 03/17/20 19:35 03/17/20 20:26 03/18/20 00:09 Temperature 97.9 F Pulse Rate 82 82 65 Respiratory Rate Blood Pressure 147/65 H 147/65 H 100/65 Pulse Oximetry 03/18/20 05:30 Temperature 97.8 F Pulse Rate 68 Respiratory Rate 16 Blood Pressure 94/58 L Pulse Oximetry 97 Body Mass Index 21.8 Labs Results: 03/13/20 08:34 03/13/20 08:34 Labs: Laboratory Results - last 48 hr 03/16/20 03/17/20 03/17/20 22:14 06:11 17:08 POC Glucose 68 106 82 03/18/20 05:27 POC Glucose 93 Imaging Radiology Impressions: ITS Impressions Head CT 03/12/20 00:00 IMPRESSION: No acute intracranial pathology. Medications Medications Current Medications Generic Name Dose Route Start Last Admin Trade Name Angelq PRN Reason Stop Dose Admin Acetaminophen 650 mg 03/12/20 02:49 03/17/20 20:25 Acetaminophen 325 Mg Tablet PO 650 mg Q6H PRN Administration Headache/Pain Mild Scale (1-3) Al Hydroxide/Mg Hydroxide 30 ml 03/12/20 02:49 03/12/20 12:00 Magnesium Hydrox/Alum Hydrox 30 Ml Oral.Susp PO 30 ml Q6H PRN Administration Heartburn/Nausea Clonidine HCl 0.1 mg 03/13/20 20:23 03/18/20 00:09 Clonidine Hcl 0.1 Mg Tablet PO 0.1 mg TID PRN Administration anxiety Protocol Escitalopram Oxalate 20 mg 03/12/20 09:00 03/18/20 08:46 Escitalopram Oxalate 20 Mg Tablet PO 20 mg DAILY SPENSER Administration Folic Acid 1 mg 03/12/20 09:00 03/18/20 08:47 Folic Acid 1 Mg Tablet PO 1 mg DAILY SPENSER Administration Gabapentin 800 mg 03/12/20 09:00 03/18/20 08:47 Gabapentin 400 Mg Capsule PO 800 mg TID SPENSER Administration Hydroxyzine HCl 50 mg 03/12/20 02:49 03/17/20 20:27 Hydroxyzine Hcl 25 Mg Tablet PO 50 mg Q6H PRN Administration Anxiety [place] Carbonate 300 mg 03/12/20 21:00 03/18/20 08:47 [place] Carbonate 300 Mg Capsule PO 300 mg BID SPENSER Administration Magnesium Hydroxide 30 ml 03/12/20 02:49 Milk Of Magnesia 30 Ml Oral.Susp PO DAILY PRN Constipation Naproxen 500 mg 03/17/20 13:35 03/18/20 05:29 Naproxen 500 Mg Tablet PO 500 mg Q12H PRN Administration Pain, Moderate (Pain Scale 4-6 Nicotine Polacrilex 2 mg 03/12/20 05:51 03/12/20 16:04 Nicotine Polacrilex 2 Mg Lozenge BUCCAL 2 mg Q2H PRN Administration Nicotine Cravings Trazodone HCl 50 mg 03/12/20 02:49 03/17/20 20:25 Trazodone Hcl 50 Mg Tablet PO 50 mg BEDTIME PRN Administration Insomnia Vitamin D 25 mcg 03/12/20 09:00 03/18/20 08:46 Cholecalciferol (Vitamin D3) 25 Mcg Tablet PO 25 mcg DAILY SPENSER Administration Allergies Allergies Allergy/AdvReac Type Severity Reaction Status Date / Time isabella Allergy Anaphylaxis Verified 03/12/20 02:18 paprika Allergy Anaphylaxis Verified 03/12/20 02:18 codeine AdvReac Seizure Verified 03/12/20 02:18 lamotrigine [From Lamictal] AdvReac Seizure Verified 03/12/20 02:18 Assessment & Plan Assessment & Plan (1) MDD (major depressive disorder), recurrent episode, moderate: Status: Acute Code(s): F33.1 - Major depressive disorder, recurrent, moderate Assessment and Plan: 1. continue lexapro 2. increase lithium to 300mg po BID 3. continue gabapetin- this is for seizures. 4. Continue remeron for sleep (2) Alcohol dependence: Status: Acute Code(s): F10.20 - Alcohol dependence, uncomplicated Greater than 50% of the session was spent on counseling and/or coordination of care
--- NOTE | 2020-03-18 12:41 | PM.PSYDC ---
DS: Providers Provider Date of Service: 04/02/20 Date of admission: 03/12/20 00:38 Date of discharge: 03/18/20 Primary care physician: AYDEN Bellamy Attending physician on discharge: Deanna Awad DS: Diagnosis Discharge Diagnosis (1) MDD (major depressive disorder), recurrent episode, moderate: Status: Acute (2) Alcohol dependence: Status: Acute DS: Medications Discharge Medications Home Medications: Home Medications Medication Instructions Recorded Confirmed EpiPen 03/12/20 albuterol 180 mcg INHALATION Q4-5H PRN 03/12/20 03/12/20 albuterol sulfate INHALATION 03/12/20 buspirone 7.5 mg PO TID 03/12/20 03/12/20 cholecalciferol (vitamin D3) 25 mcg PO DAILY 03/12/20 03/12/20 clonidine HCl 0.2 mg PO TID PRN 03/12/20 03/12/20 cyanocobalamin (vitamin B-12) 1 tab PO DAILY 03/12/20 03/12/20 escitalopram oxalate 15 mg PO DAILY 03/12/20 03/12/20 folic acid 1 mg PO DAILY 03/12/20 03/12/20 gabapentin 800 mg PO TID 03/12/20 03/12/20 lithium carbonate 450 mg PO BEDTIME 03/12/20 03/12/20 mirtazapine [Remeron] 30 mg PO BEDTIME 03/12/20 03/12/20 multivitamin [Multi-Vitamin] 1 tab PO DAILY 03/12/20 03/12/20 pyridoxine (vitamin B6) 25 mg PO DAILY 03/12/20 03/12/20 tamsulosin 0.4 mg PO DAILY 03/12/20 03/12/20 Previous Rx's Medication Instructions Recorded Vivitrol 380 mg IM QMONTH 30 Days #1 ea 03/15/20 Discharge Plan Discharge Patient Disposition: Home, Self-Care Referrals: Clinical and Support Options- Community Support Person [Other] (Follow up with this agency to see if you might qualify for a CSP worker. Messages had been left to inquire about the services but [employer]ANDFI[employer] ATTENDANT had nopt called back at the time of D/C. ) Lindsey Lagunas (Therapist, [employer]AND[employer]LL ATTENDANT) [Other] - 03/22/20 1:00 pm Selena Tejada (psychiatrist, [employer]ANDFI[employer] ATTENDANT) [Other] - 03/25/20 11:00 am Janette Vu FNP [Nurse Practitioner] - 03/19/20 4:00 pm (VIA PHONE) Discharge Medications: New clonidine HCl 0.1 mg Tablet 0.1 mg PO TID PRN (Reason: anxiety) 1 Days Qty: 3 RF: 0 escitalopram oxalate 20 mg Tablet 20 mg PO DAILY 15 Days Qty: 15 RF: 0 Continued gabapentin 800 mg Tablet 800 mg PO TID RF: 0 albuterol 90 mcg/actuation Aerosol 180 mcg inhalation Q4-5H PRN (Reason: Shortness Of Breath) RF: 0 albuterol sulfate 90 mcg/actuation HFA aerosol inhaler inhalation RF: 0 lithium carbonate 450 mg Tablet Extended Release 450 mg PO BEDTIME RF: 0 tamsulosin 0.4 mg Capsule 0.4 mg PO DAILY RF: 0 Vivitrol 380 mg Suspension,Extended Rel Recon 380 mg IM QMONTH 30 Days Qty: 1 RF: 0 multivitamin Tablet 1 tab PO DAILY 30 Days Qty: 30 RF: 0 cyanocobalamin (vitamin B-12) 1,000 mcg tablet 1 tab PO DAILY 30 Days Qty: 30 RF: 0 pyridoxine (vitamin B6) 50 mg Tablet 25 mg PO DAILY 30 Days Qty: 30 RF: 0 folic acid 1 mg Tablet 1 mg PO DAILY 30 Days Qty: 30 RF: 0 cholecalciferol (vitamin D3) 25 mcg (1,000 unit) Tablet 25 mcg PO DAILY 30 Days Qty: 30 RF: 0 Discontinued buspirone 7.5 mg Tablet 7.5 mg PO TID RF: 0 clonidine HCl 0.2 mg Tablet 0.2 mg PO TID PRN (Reason: Anxiety) RF: 0 escitalopram oxalate 10 mg Tablet 15 mg PO DAILY RF: 0 EpiPen RF: 0 mirtazapine [Remeron] 30 mg Tablet 30 mg PO BEDTIME RF: 0 Discharge Orders: Discharge Order (Routine); Ordered 03/18/20 Ordered By: Deanna Awad Diet: regular diet Activity on Discharge: As tolerated Stand Alone Forms: Patient Portal Discharge page Visit Report Forms: Patient Portal Discharge page Care Plan Goals: 1. Follow up with referrals 2. Take medications as prescribed Health Concerns: 1. Follow up with PCP and Neurology Plan of Treatment: 1. Follow up with referrals 2. Take medications as prescribed. Discharge Date/Time: 03/18/20 14:33 Mental Status Exam Mental Status Exam Narrative: Appearance: thin, malnourish woman, somewhat disheveled, in NAD Behavior: calm, cooperative Psychomotor: no agitation or retardation noted Speech: clear, normal rate/rhythm/volume, spontaneous TP: linear, with gaps in memory TC: no signs of psychosis, hopeless/helpless, worried about her memory Mood: depressed Affect: slightly brigther than reported mood AH/VH: none Delusions: none Insight/judgment: poor x 2. Memory/cog: alert, oriented x 3, will complete MOCA Data Data Completed and Pending Completed studies during hospitalization [Text1]: 03/12/20 03/12/20 03/13/20 06:30 16:57 05:21 WBC RBC Hgb Hct MCV MCH MCHC RDW Plt Count MPV Immature Gran % (Auto) Neut % (Auto) Lymph % (Auto) Williamson % (Auto) Eos % (Auto) Baso % (Auto) Lymph # (Auto) Williamson # (Auto) Eos # (Auto) Baso # (Auto) Abs Immat Gran (auto) Absolute Neuts (auto) Absolute Nucleated RBC Nucleated RBC % (auto) Sodium Potassium Chloride Carbon Dioxide Anion Gap BUN Creatinine Estim Creat Clear Calc Estimated GFR POC Glucose 114 113 103 Fasting Glucose Estimat Average Glucose Hemoglobin A1c % Calcium Iron TIBC % Saturation Unsat Iron Binding Total Bilirubin AST ALT Alkaline Phosphatase Total Protein Albumin Triglycerides Cholesterol LDL Cholesterol, Calc HDL Cholesterol Vitamin B12 Folate TSH Free T4 [place] 03/13/20 03/13/20 03/13/20 08:34 08:34 08:34 WBC 8.7 RBC 4.56 Hgb 11.2 L Hct 36.1 L MCV 79.2 L MCH 24.6 L MCHC 31.0 RDW 19.1 H Plt Count 393 MPV 9.5 Immature Gran % (Auto) 0.5 H Neut % (Auto) 57.9 Lymph % (Auto) 24.6 Williamson % (Auto) 9.8 Eos % (Auto) 5.9 H Baso % (Auto) 1.3 Lymph # (Auto) 2.2 Williamson # (Auto) 0.9 Eos # (Auto) 0.5 H Baso # (Auto) 0.1 Abs Immat Gran (auto) 0.04 H Absolute Neuts (auto) 5.1 Absolute Nucleated RBC 0.000 Nucleated RBC % (auto) 0.0 Sodium 138 Potassium 4.8 Chloride 101 Carbon Dioxide 28 Anion Gap 14 BUN 22 H Creatinine 0.98 Estim Creat Clear Calc 64.3 Estimated GFR > 60 POC Glucose Fasting Glucose 87 Estimat Average Glucose 111 Hemoglobin A1c % 5.5 Calcium 9.1 Iron TIBC % Saturation Unsat Iron Binding Total Bilirubin 0.3 AST 35 H ALT 25 Alkaline Phosphatase 68 Total Protein 6.9 Albumin 4.1 Triglycerides 128 Cholesterol 197 LDL Cholesterol, Calc 108 HDL Cholesterol 64 Vitamin B12 Folate TSH 3.04 Free T4 0.64 L [place] 03/13/20 03/13/20 03/14/20 08:34 16:53 05:01 WBC RBC Hgb Hct MCV MCH MCHC RDW Plt Count MPV Immature Gran % (Auto) Neut % (Auto) Lymph % (Auto) Williamson % (Auto) Eos % (Auto) Baso % (Auto) Lymph # (Auto) Williamson # (Auto) Eos # (Auto) Baso # (Auto) Abs Immat Gran (auto) Absolute Neuts (auto) Absolute Nucleated RBC Nucleated RBC % (auto) Sodium Potassium Chloride Carbon Dioxide Anion Gap BUN Creatinine Estim Creat Clear Calc Estimated GFR POC Glucose 86 101 Fasting Glucose Estimat Average Glucose Hemoglobin A1c % Calcium Iron TIBC % Saturation Unsat Iron Binding Total Bilirubin AST ALT Alkaline Phosphatase Total Protein Albumin Triglycerides Cholesterol LDL Cholesterol, Calc HDL Cholesterol Vitamin B12 297 Folate 13.4 TSH Free T4 [place] 03/15/20 03/15/20 03/15/20 05:17 07:45 07:45 WBC RBC Hgb Hct MCV MCH MCHC RDW Plt Count MPV Immature Gran % (Auto) Neut % (Auto) Lymph % (Auto) Williamson % (Auto) Eos % (Auto) Baso % (Auto) Lymph # (Auto) Williamson # (Auto) Eos # (Auto) Baso # (Auto) Abs Immat Gran (auto) Absolute Neuts (auto) Absolute Nucleated RBC Nucleated RBC % (auto) Sodium Potassium Chloride Carbon Dioxide Anion Gap BUN Creatinine Estim Creat Clear Calc Estimated GFR POC Glucose 93 Fasting Glucose Estimat Average Glucose Hemoglobin A1c % Calcium Iron 30 TIBC 474 H % Saturation 6 L Unsat Iron Binding 444 Total Bilirubin AST ALT Alkaline Phosphatase Total Protein Albumin Triglycerides Cholesterol LDL Cholesterol, Calc HDL Cholesterol Vitamin B12 Folate TSH Free T4 [place] 0.45 L 03/16/20 03/16/20 03/17/20 05:59 22:14 06:11 WBC RBC Hgb Hct MCV MCH MCHC RDW Plt Count MPV Immature Gran % (Auto) Neut % (Auto) Lymph % (Auto) Williamson % (Auto) Eos % (Auto) Baso % (Auto) Lymph # (Auto) Williamson # (Auto) Eos # (Auto) Baso # (Auto) Abs Immat Gran (auto) Absolute Neuts (auto) Absolute Nucleated RBC Nucleated RBC % (auto) Sodium Potassium Chloride Carbon Dioxide Anion Gap BUN Creatinine Estim Creat Clear Calc Estimated GFR POC Glucose 116 H 68 106 Fasting Glucose Estimat Average Glucose Hemoglobin A1c % Calcium Iron TIBC % Saturation Unsat Iron Binding Total Bilirubin AST ALT Alkaline Phosphatase Total Protein Albumin Triglycerides Cholesterol LDL Cholesterol, Calc HDL Cholesterol Vitamin B12 Folate TSH Free T4 [place] 03/17/20 03/18/20 17:08 05:27 WBC RBC Hgb Hct MCV MCH MCHC RDW Plt Count MPV Immature Gran % (Auto) Neut % (Auto) Lymph % (Auto) Williamson % (Auto) Eos % (Auto) Baso % (Auto) Lymph # (Auto) Williamson # (Auto) Eos # (Auto) Baso # (Auto) Abs Immat Gran (auto) Absolute Neuts (auto) Absolute Nucleated RBC Nucleated RBC % (auto) Sodium Potassium Chloride Carbon Dioxide Anion Gap BUN Creatinine Estim Creat Clear Calc Estimated GFR POC Glucose 82 93 Fasting Glucose Estimat Average Glucose Hemoglobin A1c % Calcium Iron TIBC % Saturation Unsat Iron Binding Total Bilirubin AST ALT Alkaline Phosphatase Total Protein Albumin Triglycerides Cholesterol LDL Cholesterol, Calc HDL Cholesterol Vitamin B12 Folate TSH Free T4 [place] Imaging Diagnostic Imaging Impressions Head CT 03/12/20 00:00 IMPRESSION: No acute intracranial pathology. DS: Summary Hospital Course Hospital Course: [facility] [place] [address] Psychiatry Admission Note (In)Signed Patient: Dolly BarrosoMR#: [id number]: [id number]:[id number]/Sex: 49 / FADM Date: 03/12/20Loc:[id number]: Chaz Lafleur MD cc: ~ HPI Chief Complaint: MAJOR DEPRESSIVE ORDER Sources of Information: patient interviewed, chart reviewed and crisis/core team assessment reviewed HPI Narrative: Ms. Barroso is a 49 year-old woman with hx of MDD, alcohol use who was brought to [facility] on section 12 after she was discharged from [facility] on 03/03/2020 making suicidal statements and declining to talk with [facility] clinician. A section 12 was issued, she return to [facility] on 03/07/2020 but left AMA. Apparently, patient was later found wondering, walking down the road by friend but pt had no recollection of this. Per crisis documentation, pt was unable to even report her current living situation even though previous records indicated that she has her own apartment and housing was stable. Pt continued to report memory problems, suicidal ideation, depressed mood, mostly related to concerns about her memory. On the unit, Ms. Barroso reports that she has been depressed for sometime. However, she reports memory problems affecting her mood and making her anxious and worry about her cognitive/memory function. She reports sleep is fair. She reports suicidal ideation but denies any plan or intent to hurt herself. She still can't provide much information about her current living situation. Collateral information was gathered from her sister Martha Murphy ([phone]) who reports patient has long history of alcohol use which has affected pt's relationship with the family and only until about one year ago they have been again in contact. Martha reports pt has had multiple inpatient admission for depression and suicidal ideation, also related to her alcohol use. Martha reports that while pt was in ED she reported not remembering who she was but at same time at the end of their conversation asking her to say hi to her brother in law. As far as sister aware, no memory problems such that she wouldn't remember what has happened the day before, but notes pt does have hx of TBI. HOSPITAL COURSE On the unit, Ms. Barroso presented with bright affect, however, she reported feeling very anxious because she had difficulty remembering what had happened days prior. She denied suicidal ideation throughout her hospital stay. However, she was noted at times to contradict herself in terms of memory problems as she selectively remember some details but not others. She knew throughout her stay reason for hospital stay, treatment team and often wrote letters to this mortgage underwriter with specific questions about her medications but later would claimed she had no recollection. After discussing risks, benefits and alternative treatment options, Ms. Barroso was continued on lithium for mood as she reported this was a beneficial medication. She was also continued on vivitrol for alcohol cravings. She reported sleeping and eating well. She declined referrals for substance use treatment but agreed to be referred to OP psychiatric treatment. She was visible in the unit, social with select peers. She reported having unwitnessed seizure while in unit, but without LOC or VS changes, making it much less likely an actual seizure. She did have EEG at [facility] on 07/2019 without any signs of epileptiform activity. Based on records from [facility], where she usually goes for care, it was suggested that her reports of amnesia were psychogenic. Collateral information was gathered from both of her sisters who reported that these behaviors are not unusual of her such as reporting memory problems but inadvertently providing information that shows she does have recollection of days prior. Pt was asked about this, and became very guarded and irritable. At which time, she asked for discharge. Since there was no signs of imminent risks for self or others, pt was discharged home with her roommate, Forrest. Family denied any safety concerns at the time. Time spent discussing smoking cessation with patient: more than 10 minutes Status at Discharge Cognitive/behavioral status at discharge: Pt affect was bright. She denied SI/HI throughout hospital stay. She did not show any signs of aggression towards self or others. She did become very defensive when she contradicted herself about her apparent amnesia. No signs of psychosis. Functional status at discharge: independent ambulation Overall status at discharge: patient is back to baseline Time Spent with Patient Time attestation: Total time spent providing and/or coordinating discharge services: Time spent: Greater than 30 minutes
--- NOTE | 2020-03-18 12:56 | P.PNPSI_ITS ---
Subjective Subjective Date of Service: 03/17/20 Reason For Visit: MAJOR DEPRESSIVE ORDER Interim History: Pt reports not remembering that we had discussed discharge. She reports not remembering her current housing situation. She also asks if she can have a WC due to being a fall risk, but she ambulates without difficulties. She denies SI/HI. She later told clinician that she did not remember conversation about discharge earlier with me but did ask about referrals to [facility] which we had talked about to help with housing the day before. She reported having a seizure- unwitnessed- no changes in vital signs, no loss of bladder/bowel control, no LOC- unlikely this to be seizure. Pt reminded that she has to follow up with neurology for another eeg with video as the one completed 07/2019 did not show any signs of epileptic activity.. Review of Systems Constitutional: Reports no additional constitutional complaints Cardiovascular: Reports no additional cardiovascular complaints Gastrointestinal: Reports no additional gastrointestinal complaints Musculoskeletal: Reports no additional musculoskeletal complaints Mental Status Exam Mental Status Exam Narrative: Appearance: thin, malnourish woman, somewhat disheveled, in NAD Behavior: calm, cooperative Psychomotor: no agitation or retardation noted Speech: clear, normal rate/rhythm/volume, spontaneous TP: linear, with gaps in memory TC: no signs of psychosis, hopeless/helpless, worried about her memory Mood: depressed Affect: slightly brigther than reported mood AH/VH: none Delusions: none Insight/judgment: poor x 2. Memory/cog: alert, oriented x 3, will complete MOCA Diagnostics Vital Signs (24Hr): Vital Signs - 24 hr 03/17/20 19:35 03/17/20 20:26 03/18/20 00:09 Temperature 97.9 F Pulse Rate 82 82 65 Respiratory Rate Blood Pressure 147/65 H 147/65 H 100/65 Pulse Oximetry 03/18/20 05:30 Temperature 97.8 F Pulse Rate 68 Respiratory Rate 16 Blood Pressure 94/58 L Pulse Oximetry 97 Body Mass Index 21.8 Labs Results: 03/13/20 08:34 03/13/20 08:34 Labs: Laboratory Results - last 48 hr 03/16/20 03/17/20 03/17/20 22:14 06:11 17:08 POC Glucose 68 106 82 03/18/20 05:27 POC Glucose 93 Imaging Radiology Impressions: ITS Impressions Head CT 03/12/20 00:00 IMPRESSION: No acute intracranial pathology. Medications Medications Current Medications Generic Name Dose Route Start Last Admin Trade Name Freq PRN Reason Stop Dose Admin Acetaminophen 650 mg 03/12/20 02:49 03/17/20 20:25 Acetaminophen 325 Mg Tablet PO 650 mg Q6H PRN Administration Headache/Pain Mild Scale (1-3) Al Hydroxide/Mg Hydroxide 30 ml 03/12/20 02:49 03/12/20 12:00 Magnesium Hydrox/Alum Hydrox 30 Ml Oral.Susp PO 30 ml Q6H PRN Administration Heartburn/Nausea Clonidine HCl 0.1 mg 03/13/20 20:23 03/18/20 00:09 Clonidine Hcl 0.1 Mg Tablet PO 0.1 mg TID PRN Administration anxiety Protocol Escitalopram Oxalate 20 mg 03/12/20 09:00 03/18/20 08:46 Escitalopram Oxalate 20 Mg Tablet PO 20 mg DAILY SPENSER Administration Folic Acid 1 mg 03/12/20 09:00 03/18/20 08:47 Folic Acid 1 Mg Tablet PO 1 mg DAILY SPENSER Administration Gabapentin 800 mg 03/12/20 09:00 03/18/20 08:47 Gabapentin 400 Mg Capsule PO 800 mg TID SPENSER Administration Hydroxyzine HCl 50 mg 03/12/20 02:49 03/17/20 20:27 Hydroxyzine Hcl 25 Mg Tablet PO 50 mg Q6H PRN Administration Anxiety [place] Carbonate 300 mg 03/12/20 21:00 03/18/20 08:47 [place] Carbonate 300 Mg Capsule PO 300 mg BID SPENSER Administration Magnesium Hydroxide 30 ml 03/12/20 02:49 Milk Of Magnesia 30 Ml Oral.Susp PO DAILY PRN Constipation Naproxen 500 mg 03/17/20 13:35 03/18/20 05:29 Naproxen 500 Mg Tablet PO 500 mg Q12H PRN Administration Pain, Moderate (Pain Scale 4-6 Nicotine Polacrilex 2 mg 03/12/20 05:51 03/12/20 16:04 Nicotine Polacrilex 2 Mg Lozenge BUCCAL 2 mg Q2H PRN Administration Nicotine Cravings Trazodone HCl 50 mg 03/12/20 02:49 03/17/20 20:25 Trazodone Hcl 50 Mg Tablet PO 50 mg BEDTIME PRN Administration Insomnia Vitamin D 25 mcg 03/12/20 09:00 03/18/20 08:46 Cholecalciferol (Vitamin D3) 25 Mcg Tablet PO 25 mcg DAILY SPENSER Administration Allergies Allergies Allergy/AdvReac Type Severity Reaction Status Date / Time isabella Allergy Anaphylaxis Verified 03/12/20 02:18 paprika Allergy Anaphylaxis Verified 03/12/20 02:18 codeine AdvReac Seizure Verified 03/12/20 02:18 lamotrigine [From Lamictal] AdvReac Seizure Verified 03/12/20 02:18 Assessment & Plan Assessment & Plan (1) MDD (major depressive disorder), recurrent episode, moderate: Status: Acute Code(s): F33.1 - Major depressive disorder, recurrent, moderate Assessment and Plan: 1. continue lexapro 2. increase lithium to 300mg po BID 3. continue gabapetin- this is for seizures. 4. Continue remeron for sleep (2) Alcohol dependence: Status: Acute Code(s): F10.20 - Alcohol dependence, uncomplicated Greater than 50% of the session was spent on counseling and/or coordination of care
[2020-03-18 13:46] VITALS: BP 112/64; PULSE 80
== END 2020-03-18 14:33 | disposition home or self-care (01) | DRG 751 ==
PROVIDERS: Social Worker; Admitting Provider Psychiatry & Neurology Psychiatry; Visit Provider Psychiatry & Neurology Psychiatry
DX: F33.1 Major depressive disorder, recurrent, moderate (principal); R45.851 Suicidal ideations; F10.20 Alcohol dependence, uncomplicated; Z88.5 Allergy status to narcotic agent; Z79.899 Other long term (current) drug therapy
CPT/HCPCS: 36415; 70450; 80053; 80061; 80178; 82607; 82746; 82947; 83036; 83540; 84439; 84443; 85025; 93005; 99222; 99232

== ENCOUNTER 2025-02-17 08:27 | Outpatient (AMB) | payer MEDICARE, MEDICAID, SELFPAY ==
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
[2025-02-17 08:18] VITALS: BP 107/75; PULSE 119; O2SAT 100; BMI 20.9
--- OUTSIDE RECORDS SUMMARY | 2025-02-17 10:06 | XMS_ITS | Clinical Summary ---
Author Organization [facility] Address [address] [address] Phone Care Team Providers Care Re Dye Hand Name Role Phone Nadiya Dixon Primary Care Provider Allergies Active Allergy Reactions Criticality Noted Date Comments Aloe Anaphylaxis High 12/02/2021 Amoxicillin-Pot Clavulanate Diarrhea Low 12/02/2021 Cocaine Anaphylaxis High 12/02/2021 Codeine Anaphylaxis High 12/02/2021 Other Reaction(s): mouth swells Lactose Anaphylaxis High 12/02/2021 Lansoprazole Anaphylaxis High 12/02/2021 Levetiracetam Other (see comments) 12/02/2021 PT states this is not an allergy but it's listed on her PCP chart [place]craft Anaphylaxis High 05/21/2023 Mangifera Indica Anaphylaxis High 12/02/2021 Medications traZODone (DESYREL) 50 MG tablet Take 100 mg by mouth 1 Active tamsulosin (Flomax) 0.4 MG 24 hr capsule Take 0.4 mg by mouth 1 Active prazosin (MINIPRESS) 1 MG capsule Take 1 mg by mouth every night 1 Active OLANZapine (ZyPREXA) 5 MG tablet Take 15 mg by mouth every night 1 Active nabumetone (RELAFEN) 500 MG tablet Take 500 mg by mouth 2 Active ipratropium-albut baron (Combivent Respimat) 20-100 MCG/ACT inhaler Inhale 2 Active ipratropium-albut baron (DUO-NEB) 0.5-2.5 mg/3 mL nebulizer solution See Instructions, 2 inhalations with Neb Daily, # 180 mL, 0 Refills, Maintenance, 09/25/19 8:25:00 EDT, Inhalation Solution, [facility] [address], 2 inhalations with Neb Daily, 170, cm, 09/24/19 19:44:00 EDT, Height, 50, kg, 09/19/19 18:49:00 EDT, D... 0 Active hydrOXYzine (VISTARIL) 50 MG capsule Take 50 mg by mouth 1 Active gabapentin (NEURONTIN) 100 MG capsule Take 800 mg by mouth in the morning and 800 mg in the evening and 800 mg before bedtime. 2 Active folic acid (FOLVITE) 1 MG tablet Take 1 mg by mouth 2 Active fluticasone (FLONASE) 50 MCG/ACT nasal spray Administer into affected nostril(s) 2 Active EPINEPHrine (EpiPen 2-Win) 0.3 MG/0.3ML injection syringe Inject 0.3 mg into the shoulder, thigh, or buttocks 2 Active Docusate Sodium (DSS) 100 MG capsule Take 100 mg by mouth 1 Active cloNIDine (CATAPRES) 0.1 MG tablet Take 0.1 mg by mouth every 6 (six) hours if needed (mood) 1 Active buPROPion XL (WELLBUTRIN XL) 300 MG 24 hr tablet Take 300 mg by mouth 1 Active buPROPion XL (WELLBUTRIN XL) 150 MG 24 hr tablet Take 150 mg by mouth 2 Active Acetaminophen (Tylenol) 325 MG capsule Take 650 mg by mouth 1 Active cyanocobalamin ([employer] Vitamin B-12) 1000 MCG tablet Take 1,000 mcg by mouth 2 Active Biotin 1 MG capsule Take 1 tablet by mouth 2 Active Multiple Vitamins-Minerals (SUPER THERA JEVON M PO) Take 1 tablet by mouth 2 Active escitalopram (LEXAPRO) 10 MG tablet 4 Active Vivitrol 380 MG reconstituted suspension Inject 380 mg into the shoulder, thigh, or buttocks every 28 (twenty-eight) days 4 Active levothyroxine sodium (TIROSINT) 137 MCG capsule Take 137 mcg by mouth 1 (one) time each day Active mirtazapine (REMERON) 45 MG tablet Take 45 mg by mouth every night Active traZODone (DESYREL) 100 MG tablet Take 100 mg by mouth every night Active Active Problems Problem Noted Date Diagnosed Date Hypoglycemia 05/16/2023 Alcohol abuse 05/16/2023 Overview (05/16/2023): History of alcohol abuse. Psychogenic factor 05/16/2023 Family History Medical History Relation Comments Stroke Father Breast cancer Mother Relation Status Comments Father Mother Social History Tobacco Use Types Packs/Day Years Used Date Smoking Tobacco: Every Day Cigarettes Tobacco Cessation:Ready to Q uit: Not Asked; Counseling Given: Not Answered Alcohol Use Standard Drinks/Week Comments Yes 0 (1 standard drink = 0.6 oz pur e alcohol) Comments Unknown Sex and Gender Information Value Date Recorded Sex Assigned at Not on file Legal Sex Female 11:02 AM EST Gender Identity Not on file Sexual Orientation Not on file Last Filed Vital Signs Vital Sign Reading Time Taken Comments Blood Pressure 108/80 11/27/2023 1:25 PM EDT Pulse 86 05/21/2023 1:00 PM EDT Temperature - - Respiratory Rate - - Oxygen Saturation 98% 11/27/2023 1:25 PM EDT Inhaled Oxygen Concentration - - Weight 71.9 kg (158 lb 9.6 oz) 11/27/2023 1:25 P M EDT Height - - Body Mass Index - - Plan of Treatment Upcoming Encounters Date Type Department Care Team (Late st Contact Info) Description 03/05/2025 11:00 AM EST Office Visit [facility] [address] [phone] Momo Dow MD [address] [id number] Health Maintenance Due Date Last Done Comments Breast Cancer Screening 1969 Hepatitis B Vaccine (1 of 3 - 19+ 3-dose series) 1988 Colorectal Cancer Screening: Annual FOBT 2018 Colorectal Cancer Screening: Colonoscopy 2018 Colorectal Cancer Screening: Sigmoidoscopy 2018 Pneumococcal Vaccine: 50+ Ye ars (3 of 3 - PCV) 08/18/2020 08/19/2019, 01/01/2015 Influenza Vaccine (#1) 2024 Pneumococcal Vaccine: Peds ( 0 to 5 Years) and At-Risk Patients (6 to 49 Years) Discontinued 08/19/2019, 01/01/2015 Insurance Medicare Medicaid [place] Care Teams Re Dye Hand Relationship Specialty Start Date End Date Nadiya Dixon DO [address] [place] [id number] PCP - General Family Medicine 05/21/23
== END 2025-02-17 08:42 | disposition home or self-care (01) ==
LOC: HO.PMC 08:27
PROVIDERS: PCP Family Medicine; Referring Provider Family Medicine; Visit Provider Nurse Practitioner Family
DX: M53.3 Sacrococcygeal disorders, not elsewhere classified (principal); M96.1 Postlaminectomy syndrome, not elsewhere classified; M54.16 Radiculopathy, lumbar region; M47.817 Spondylosis without myelopathy or radiculopathy, lumbosacral region; S33.140A Subluxation of L4/L5 lumbar vertebra, initial encounter
CPT/HCPCS: 99204

== ENCOUNTER 2025-02-17 08:27 | Outpatient (REF) | payer MEDICARE, MEDICAID, SELFPAY ==
--- NOTE | ~2025-02-17 | XR_ITS ---
EXAMINATION: XR HIP 1 VIEW LEFT WITH PELVIS HISTORY: M25.552 - Pain in left hip COMPARISON: There are no prior studies available for comparison. FINDINGS: A single AP view of the pelvis and two views of the left hip are submitted. Osseous mineralization is normal. There is no fracture or dislocation. The joint space is maintained. The soft tissues are unremarkable. XR/XR hip LT w PEL1V IMPRESSION: Unremarkable examination of the left hip. Electronically signed by: Seth Dickens MD 02/17/2025 09:44 AM [facility] GARBER
--- NOTE | ~2025-02-17 | XR_ITS ---
EXAMINATION: XR LUMBOSACRAL SPINE WITH OBLIQUES CLINICAL INFORMATION: M96.1 - Postlaminectomy syndrome, not elsewhere classified COMPARISON: None available. TECHNIQUE: AP, both oblique, and lateral views of the lumbar spine. Lateral view of the lumbosacral junction. FINDINGS: There is mild 5 mm anterior subluxation of L4 with respect to L5. Postsurgical changes at the L5-S1 disc space level. No fracture or dislocation. There is disc space narrowing from L3-4 to L5-S1. There is bilateral multilevel facet arthritis. There are surgical clips in the left upper quadrant in the region of the stomach and left mid abdomen. Air is constipation. XR/XR lumbar spine 4V min IMPRESSION: Postsurgical changes at the L5-S1 disc level. Mild 5 mm anterior subluxation of L4 and L5. Degenerative disc disease from L3-4 to L5-S1 and bilateral multilevel facet arthritis. Electronically signed by: Yuliya Eugene MD 02/17/2025 10:41 AM OSIRIS
== END 2025-02-17 08:28 ==
LOC: HO.XRAY 08:27
PROVIDERS: PCP Family Medicine; Referring Provider Family Medicine; Visit Provider Nurse Practitioner Family
DX: M53.3 Sacrococcygeal disorders, not elsewhere classified (principal); M96.1 Postlaminectomy syndrome, not elsewhere classified; M25.552 Pain in left hip; G89.29 Other chronic pain; M54.16 Radiculopathy, lumbar region; M47.817 Spondylosis without myelopathy or radiculopathy, lumbosacral region; S33.140A Subluxation of L4/L5 lumbar vertebra, initial encounter; X58.XXXA Exposure to other specified factors, initial encounter
CPT/HCPCS: 72110; 73502; 99202

== ENCOUNTER → 2025-02-17 08:58 | Outpatient (BNV) | payer MEDICARE, MEDICAID, SELFPAY | PROVIDERS: PCP Family Medicine; Referring Provider Family Medicine; Visit Provider Radiology Diagnostic Radiology | DX: M96.1 Postlaminectomy syndrome, not elsewhere classified (principal); M51.379 Other intervertebral disc degeneration, lumbosacral region without mention of lumbar back pain or lower extremity pain; M47.816 Spondylosis without myelopathy or radiculopathy, lumbar region; M25.552 Pain in left hip | CPT/HCPCS: 72110; 73502 ==